=== PATIENT | male | born 1970 | race Caucasian/White ===

== ENCOUNTER 2024-06-08 15:11 | Emergency (ER) | payer MEDICARE, SELFPAY ==
[2024-06-08 15:16] VITALS: BP 110/70
[2024-06-08 16:11] LABS: % Basophils 0.4 % (0-2); % Eosinophils 2.7 % (0-6); % Immature Granulocytes 0.8 % (0-0.5); % Lymphocytes 5.8 % (20.5-51.1); % Monocytes 5.1 % (1.7-9.3); % Neutrophils 85.2 % (42.2-75.2); Absolute Eosinophils 0.3 10^3/uL (0-0.7); Absolute Immature Granulocytes 0.1 10^3/uL (0-0.05); Absolute Lymphocytes 0.6 10^3/uL (1.2-3.4); Absolute Monocytes 0.6 10^3/uL (0.1-0.6); Absolute Neutrophils 9.4 10^3/uL (1.4-6.5); Hematocrit 41.4 % (39.0-52.0); Hemoglobin 14.1 g/dL (13.0-18.0); Mean Corp Hgb Conc. 34.1 g/dL (33.0-37.0); Mean Corpuscular Hgb 29.6 pg (27.0-31.0); Mean Corpuscular Volume 86.8 fL (80.0-94.0); Mean Platelet Volume 9.2 fL (7.4-10.4); Nucleated Red Blood Cells % 0 % (-); Platelet Count 162 10^3/uL (130-400); Red Blood Cell Count 4.77 10^6/uL (4.70-6.10); Red Cell Dist. Width 12.7 % (11.5-14.5)
[2024-06-08 16:30] LABS: ALT (SGPT) 14 U/L (0-50); AST (SGOT) 16 U/L (17-59); Albumin 4.3 g/dl (3.5-5.0); Alkaline Phosphatase 68 U/L (38-126); Blood Urea Nitrogen 16 mg/dl (9-20); Carbon Dioxide 25 mmol/L (22-30); Chloride 101 mmol/L (98-107); Glucose 120 mg/dl (70-99); Lipase 128 U/L (23-300); Potassium 3.9 mmol/L (3.5-5.1); Sodium 137 mmol/L (135-145); Total Bilirubin 1.1 mg/dl (0.2-1.3); Total Protein 6.8 g/dl (6.3-8.2); eGFR > 60.00
[2024-06-08 17:46] VITALS: BP 112/72
--- NOTE | 2024-06-08 17:52 | ED.GENMED ---
History of Present Illness
<Acacia Clifton MD, Resident - Last Filed: 06/08/24 22:35>
General
Chief Complaint: Abdominal Symptoms
Time Seen by Provider: 06/08/24 17:09
History of Present Illness
History of Present Illness:
This is a 54-year-old male patient with PMH of chronic back pain treating with medical marijuana presented to the ED with diarrhea and increased back pain. He states that yesterday since midnight he started to have vomiting and nonbloody diarrhea
where he had 4-5 episodes. This was also associated with nausea. He also states that his back pain was increased the past week more than his baseline. He also admits to feeling feverish. He denies any chills, abdominal pain or chest pain.
Past History
<Acacia Clifton MD, Resident - Last Filed: 06/08/24 22:35>
Past History
ED Past Medical History: None
ED Past Surgical History: Other (Hand surgery)
Social History
Tobacco: Smoker
Alcohol: None
Drug: None
Living: with family
Review of Systems
<Acacia Clifton MD, Resident - Last Filed: 06/08/24 22:35>
Review of Systems
Constitutional: Reports fever; Denies chills
Cardiac: Denies chest pain or palpitations
ABD/GI: Reports vomiting and diarrhea; Denies abdominal pain or bloody stools
Musculoskeletal: Reports back pain
Neurological: Denies headache
Phy Exam
<Acacia Clifton MD, Resident - Last Filed: 06/08/24 22:35>
General Physical Exam
General Presentation: well appearing and no apparent distress
Cardiovascular Exam
Cardiovascular Exam: regular rate/rhythm and no murmur
Heart Sounds: normal
Pulmonary Exam
Pulmonary Exam: lungs clear, no respiratory distress and no crackles
Gastrointestinal Exam
Gastrointestinal Exam: non tender, soft and non distended
Neurological Exam
Neurological Exam: oriented x3
Musculoskeletal Exam
Musculoskeletal Exam: back pain (lower back)
Skin Exam
Skin Exam: warm/dry
Psychiatric Exam
Psychiatric Exam: normal mood/affect
Course
<Acacia Lianne Clifton MD, Resident - Last Filed: 06/08/24 22:35>
Orders/Labs/Results
Orders:
Orders
06/08/24 15:47
Complete Blood Count/With Diff Urgent
Comprehensive Metabolic Panel Urgent
Lipase Urgent
06/08/24 18:10
Acetaminophen [Tylenol] 1,000 mg PO NOW STA
Ketorolac [Toradol] 15 mg IV NOW STA
06/08/24 18:11
0.9% Sodium Chloride 1000 ml [Nss] 1,000 ml IV BOLUS
06/08/24 18:34
Ondansetron Injectable [Zofran] 4 mg IV NOW STA
06/08/24 18:35
Ketorolac [Toradol] 30 mg .ROUTE .STK-MED ONE
Ondansetron Orally Disint [Zofran Odt (Orally Disintegrating)] 4 mg .ROUTE .STK-MED ONE
06/08/24 18:36
Ondansetron Orally Disint [Zofran Odt (Orally Disintegrating)] 4 mg PO NOW STA
06/08/24 18:37
Ketorolac [Toradol] 30 mg IM NOW STA
Abnormal Lab Results
06/08/24
15:47
WBC 11.0 H 10^3/uL
(4.8-10.8)
Abs Immat Gran (auto) 0.1 H 10^3/uL
(0-0.05)
Absolute Neuts (auto) 9.4 H 10^3/uL
(1.4-6.5)
Absolute Lymphs (auto) 0.6 L 10^3/uL
(1.2-3.4)
Immature Gran % 0.8 H %
(0-0.5)
Neutrophils % 85.2 H %
(42.2-75.2)
Lymphocytes % 5.8 L %
(20.5-51.1)
Glucose 120 H mg/dl
(70-99)
AST 16 L U/L
(17-59)
06/08/24 15:47
06/08/24 15:47
Vital Signs
Initial and Last Documented VS:
Initial Vital Signs
Temp Pulse Resp BP Pulse Ox
100.3 F 113 20 110/70 98
06/08/24 15:16 06/08/24 15:16 06/08/24 15:16 06/08/24 15:16 06/08/24 15:16
Last Documented Vital Signs
Temp Pulse Resp BP Pulse Ox
100.5 F H 104 18 112/72 98
06/08/24 17:46 06/08/24 17:46 06/08/24 17:46 06/08/24 17:46 06/08/24 17:46
<Jonny Carrillo MD - Last Filed: 06/08/24 19:02>
Orders/Labs/Results
Orders:
Orders
06/08/24 15:47
Complete Blood Count/With Diff Urgent
Comprehensive Metabolic Panel Urgent
Lipase Urgent
06/08/24 18:10
Acetaminophen [Tylenol] 1,000 mg PO NOW STA
Ketorolac [Toradol] 15 mg IV NOW STA
06/08/24 18:11
0.9% Sodium Chloride 1000 ml [Nss] 1,000 ml IV BOLUS
06/08/24 18:34
Ondansetron Injectable [Zofran] 4 mg IV NOW STA
06/08/24 18:35
Ketorolac [Toradol] 30 mg .ROUTE .STK-MED ONE
Ondansetron Orally Disint [Zofran Odt (Orally Disintegrating)] 4 mg .ROUTE .STK-MED ONE
06/08/24 18:36
Ondansetron Orally Disint [Zofran Odt (Orally Disintegrating)] 4 mg PO NOW STA
06/08/24 18:37
Ketorolac [Toradol] 30 mg IM NOW STA
Abnormal Lab Results
06/08/24
15:47
WBC 11.0 H 10^3/uL
(4.8-10.8)
Abs Immat Gran (auto) 0.1 H 10^3/uL
(0-0.05)
Absolute Neuts (auto) 9.4 H 10^3/uL
(1.4-6.5)
Absolute Lymphs (auto) 0.6 L 10^3/uL
(1.2-3.4)
Immature Gran % 0.8 H %
(0-0.5)
Neutrophils % 85.2 H %
(42.2-75.2)
Lymphocytes % 5.8 L %
(20.5-51.1)
Glucose 120 H mg/dl
(70-99)
AST 16 L U/L
(17-59)
06/08/24 15:47
06/08/24 15:47
Vital Signs
Initial and Last Documented VS:
Initial Vital Signs
Temp Pulse Resp BP Pulse Ox
100.3 F 113 20 110/70 98
06/08/24 15:16 06/08/24 15:16 06/08/24 15:16 06/08/24 15:16 06/08/24 15:16
Last Documented Vital Signs
Temp Pulse Resp BP Pulse Ox
100.5 F H 104 18 112/72 98
06/08/24 17:46 06/08/24 17:46 06/08/24 17:46 06/08/24 17:46 06/08/24 17:46
<Acacia Clifton MD, Resident - Last Filed: 06/08/24 22:35>
*Critical Care Note
Total Time (30-74mins, 75-104mins- exclusive of procedures): Not Applicable
<Acacia Clifton MD, Resident - Last Filed: 06/08/24 22:35>
Update Note
Update Note:
CBC/CMP with no significant findings except for mildly elevated WBC count of 11. Abdomen soft, nontender, nondistended. Started IV fluids, Tylenol and Toradol. Patient started to improve with his pain. He was given Zofran which has also helped
with his nausea. Patient was offered CT abdomen due to his increased back pain and fever of 100.5 but patient declines. Likely acute gastroenteritis. Patient is stable and agreeable with discharge with Zofran.
ED Attending Note
<Acacia Clifton MD, Resident - Last Filed: 06/08/24 22:35>
-
Portions of this chart may have been created with voice recognition software.� Occasional wrong word or��sound alike� substitutions may have occurred due to the inherent limitations of voice recognition software.
<Jonny Carrillo MD - Last Filed: 06/08/24 19:02>
ED Attending Note
Patient seen and examined by attending physician: Yes
I performed a history and physical exam of patient and discussed management with resident, I reviewed resident's note and agree with documented findings and plan of care.: Yes
ED Attending Note:
I have seen and evaluated the patient with a [id number] encounter. I have spoken to the resident and involved in the medical history, the physical exam, medical decision making.
Evaluation and management service: agree unless noted differently below.
Results interpretation: agree unless noted differently below.
Focused HPI: 54-year-old male with a past medical history of chronic low back pain managed with medical marijuana presents to the emergency room for evaluation of nausea/vomiting/diarrhea. Patient reports onset of symptoms last night around
midnight and have been constant since that time. He reports multiple episodes of nonbloody nonbilious vomiting. He says he has had at least 5-6 episodes of liquid nonbloody diarrhea. Came to emergency room for evaluation. He denies any abdominal
plain at any point in time. He does have low back pain which is a chronic issue although he has noted that it has been worse than usual over the past week he believes this is in part related to his inability to obtain his medical marijuana for the
past week. He has not noted fever at home but was noted to have a low-grade fever here.
Physical exam: Awake alert resting comfortably not in distress. Low-grade tachycardia with low-grade fever here 38.1 �C. Abdomen soft completely nontender to deep palpation with no abdominal masses. He has some mild paraspinal tenderness in the
lumbar region bilaterally but no midline tenderness.
Medical Decision Makin-year-old male presents for evaluation of nausea/vomiting/diarrhea since midnight, also acute on chronic low back pain. He had labs sent in triage including a CBC which showed a marginal leukocytosis. His CMP was
unremarkable. After my initial assessment of the patient I recommended that we obtain a CT of the abdomen pelvis and place an IV to give fluids and pain control. Patient is adamant that he does not need a CT scan. I explained that although he has
no abdominal tenderness occasionally serious infections can present with low back pain; he says that he does not wish to have a CT scan today. He was agreeable to ODT Zofran and IM Toradol and requested discharge.
Discharge Plan
Departure
Patient Disposition: Home (Routine Discharge)
Date of Disposition: 06/08/24
Time of Disposition: 18:55
Patient with high blood pressure during this ER visit?: No
Discharge Problem:
Acute gastroenteritis
Prescriptions:
New
ondansetron 4 mg tablet,disintegrating
4 mg PO TIDPRN PRN (Reason: nausea/vomiting) Qty: 20 0RF
No Action
cannabidiol [Epidiolex] 1 UNIT solution
1 unit PO DAILY
Referrals:
Riccardo Franco MD [Family Provider] -
Activity Restrictions/Additional Instructions:
If experiencing symptoms such as worsening diarrhea, worsening vomiting or high-grade fevers please return to the ER. Please follow-up with your primary care physician in a week.
Interventions
Interventions:
*Risk Screen - Suicide Last Done: 06/08/24 15:16
*General Assessment Last Done: 06/08/24 15:16
*Neglect/Abuse Screening Last Done: 06/08/24 15:16
*ED COVID-19 Vaccine History Last Done: 06/08/24 17:48
*Nursing Disposition Last Done: 06/08/24 19:07
[id number] Assessment Last Done: 06/08/24 17:45
Discharge Date and Time
Discharge Date/Time: 06/08/24 19:10
Print Language: TURKISH
[2024-06-08] MEDS: ZOFRAN ODT (ORALLY DISINTEGRATING) 4 MG PO (18:36)
[2024-06-08] MEDS: TORADOL 30 MG IM (18:37)
[2024-06-08] MEDS: TYLENOL 1000 MG PO (18:41)
== END 2024-06-08 19:10 | disposition home or self-care (01) ==
LOC: EMR 15:11
PROVIDERS: EMERGENCY PHYSICIAN Emergency Medicine; FAMILY PHYSICIAN Family Medicine
DX: K52.9 Noninfective gastroenteritis and colitis, unspecified (principal); M54.50 Low back pain, unspecified; G89.29 Other chronic pain
CPT/HCPCS: 99284; 96372; 80053; 83690; 85025